=== PATIENT | female | born 1975 | race Caucasian/White ===

== ENCOUNTER 2021-05-28 04:44 | Inpatient (IN) | payer OTHER ==
[2021-05-24 11:07] VITALS: BMI 30.9
[2021-05-28] MEDS ORDERED: GABAPENTIN 100 MG CAPSULE PO ONE (06:00)
[2021-05-28] MEDS ORDERED: PHENAZOPYRIDINE HCL 100 MG TABLET (FP) PO ONE ×2 (06:00→07:00)
[2021-05-28] MEDS ORDERED: PHENAZOPYRIDINE HCL 100 MG TABLET (FP) ONE (07:02)
[2021-05-28] MEDS ORDERED: ceFAZolin SODIUM 1 GM VIAL ONE (07:02)
[2021-05-28] MEDS ORDERED: MIDAZOLAM HCL 2 MG/2 ML SINGLE DOSE VIAL ONE ×2 (07:12)
[2021-05-28] MEDS ORDERED: BUPIVACAINE LIPOSOME/PF (EXPAREL) 266 MG/20 ML VIAL ONE (07:14)
[2021-05-28] MEDS ORDERED: BUPIVACAINE HCL/PF 0.5% (5MG/ML) 10 ML VIAL ONE (07:14)
[2021-05-28] MEDS ORDERED: PROPOFOL 20 ML ONE ×2 (07:16)
[2021-05-28] MEDS ORDERED: ROCURONIUM BROMIDE 50 MG/5 ML SYRINGE ONE ×2 (07:17→09:32)
[2021-05-28] MEDS ORDERED: SUCCINYLCHOLINE CHLORIDE 200 MG/10 ML SYRINGE ONE (07:17)
[2021-05-28] MEDS ORDERED: LIDOCAINE HCL/PF 2% SDV 5ML VIAL ONE (07:17)
[2021-05-28] MEDS ORDERED: DESFLURANE GAS 240 ML BOTTLE IH ONE (07:46)
[2021-05-28] MEDS ORDERED: ACETAMINOPHEN 1000 MG/100 ML VIAL (NON FORMULARY) IVPB ONE (08:00)
[2021-05-28] MEDS ORDERED: TRANEXAMIC ACID 1000 MG/10 ML VIAL IVPUSH ONE (08:00)
[2021-05-28] MEDS ORDERED: CEFAZOLIN 2 GM in DEXTROSE 5%-WATER - 100 ML IVPB ONE (08:00)
[2021-05-28] MEDS ORDERED: ceFAZolin SODIUM 1 GM VIAL IVPB ONE (08:30)
[2021-05-28] MEDS ORDERED: HYDROmorphone HCl 2 MG/ML VIAL ONE (09:12)
[2021-05-28] MEDS ORDERED: NEOSTIGMINE METHYLSULFATE 0.5 MG/ML - 10 ML MDV ONE (09:34)
[2021-05-28] MEDS ORDERED: GLYCOPYRROLATE 0.2 MG/1 ML VIAL ONE (09:37)
[2021-05-28] MEDS ORDERED: ONDANSETRON 4 MG/2 ML VIAL IVPUSH PRN (10:04)
[2021-05-28] MEDS ORDERED: LACTATED RINGERS SOLUTION 1,000 ML IV SCH (10:15)
[2021-05-28] MEDS: CEFAZOLIN 2 GM in DEXTROSE 5%-WATER 100 ML IVPB SCH ×2 (16:19→22:03)
[2021-05-28] MEDS ORDERED: metFORMIN HCL 500 MG TABLET (FP) PO SCH (17:30)
[2021-05-28] MEDS ORDERED: PATIENT'S OWN MEDICATION (NON-FORMULARY) (Semaglutide [Ozempic] 0.25 MG/0.2 ML Pen.Injctr) SQ SCH (17:45)
[2021-05-28] MEDS: metFORMIN HCL 500 MG TABLET (FP) PO SCH (17:48)
[2021-05-28] MEDS: oxyCODONE HCL 5 MG TABLET PO PRN ×2 (17:54→21:57)
[2021-05-28] MEDS: ACETAMINOPHEN 325 MG TABLET (FP) PO PRN ×2 (17:56→21:58)
[2021-05-28] MEDS: BENZOCAINE/MENTH/CETYLPYRD CL 1 EACH LOZENGE MM PRN (21:57)
[2021-05-28] MEDS ORDERED: ATORVASTATIN CA 40 MG TABLET (FP) PO SCH ×2 (22:00)
[2021-05-29] MEDS: ACETAMINOPHEN 325 MG TABLET (FP) PO PRN (05:20)
[2021-05-29] MEDS: oxyCODONE HCL 5 MG TABLET PO PRN (05:20)
[2021-05-29] MEDS: BENZOCAINE/MENTH/CETYLPYRD CL 1 EACH LOZENGE MM PRN (05:21)
[2021-05-29] MEDS: metFORMIN HCL 500 MG TABLET (FP) PO SCH (06:41)
[2021-05-29 08:51] VITALS: PULSE 67
[2021-05-29] MEDS ORDERED: LORATADINE 10 MG TABLET PO PRN (10:00)
[2021-05-29] MEDS ORDERED: LORATADINE 10 MG TABLET PO SCH (10:00)
[2021-05-29] MEDS ORDERED: LISINOPRIL 10 MG TABLET PO SCH (10:00)
[2021-05-29] MEDS ORDERED: HYDROCHLOROTHIAZIDE 12.5 MG CAPSULE (FP) PO SCH (10:00)
[2021-05-29] MEDS ORDERED: ENOXAPARIN NA (PORCINE) 40 MG/0.4 ML DISP.SYRIN SQ SCH (10:00)
[2021-05-29] MEDS ORDERED: DOCUSATE SODIUM 100 MG CAPSULE (FP) PO SCH (10:00)
[2021-05-29 14:15] VITALS: BP 104/67; TEMP 98.8
== END 2021-05-29 15:13 | disposition home or self-care (01) | DRG 743 ==
LOC: JASUSAT 04:44 → J3W 12:37 → JASUSAT 12:38 → J3W 12:38
PROVIDERS: ADMIT Obstetrics & Gynecology; ATTEND Obstetrics & Gynecology
PROC: 0UT24ZZ Resection of Bilateral Ovaries, Percutaneous Endoscopic Approach (ICD-10-PCS; 2021-05-28)
PROC: 8E0W4CZ Robotic Assisted Procedure of Trunk Region, Percutaneous Endoscopic Approach (ICD-10-PCS; 2021-05-28)
PROC: 0UT94ZL Resection of Uterus, Supracervical, Percutaneous Endoscopic Approach (ICD-10-PCS; principal; 2021-05-28 07:30)
PROC: 0UT74ZZ Resection of Bilateral Fallopian Tubes, Percutaneous Endoscopic Approach (ICD-10-PCS; 2021-05-28 07:30)
DX: D25.9 Leiomyoma of uterus, unspecified (principal); E11.9 Type 2 diabetes mellitus without complications; Z79.84 Long term (current) use of oral hypoglycemic drugs; Z79.899 Other long term (current) drug therapy; M47.816 Spondylosis without myelopathy or radiculopathy, lumbar region; M47.812 Spondylosis without myelopathy or radiculopathy, cervical region
CPT/HCPCS: 36415; 81025; 82962; 84703; 86850; 86900; 86901; 88302-TC; 88304-TC; 88307-TC; 94010; 94760

== ENCOUNTER 2022-05-05 15:22 | Emergency (ER) | payer OTHER ==
[2022-05-05 15:26] VITALS: BP 155/87; PULSE 77; RESP 18; BMI 27.8
[2022-05-05] MEDS ORDERED: diphenhydrAMINE HCL 50 MG CAPSULE PO ONE (16:20)
[2022-05-05] MEDS ORDERED: DEXAMETHASONE LIQUID 0.5 MG/5 ML PO ONE (16:20)
[2022-05-05] MEDS ORDERED: diphenhydrAMINE HCL 25 MG CAPSULE (FP) PO ONE (16:23)
[2022-05-05] MEDS ORDERED: DEXAMETHASONE SOD PHOSPHATE 10 MG/1 ML VIAL ONE (16:23)
== END 2022-05-05 16:34 | disposition home or self-care (01) ==
LOC: JERFT 15:22
DX: L50.9 Urticaria, unspecified (principal)
CPT/HCPCS: 99283-25